=== PATIENT | female | born 1970 | race Caucasian/White ===

== ENCOUNTER 2016-08-10 16:04 | Emergency (ER) | payer OTHER, MEDICARE ==
[~2016-08-10] VITALS: Ht 154.9 cm; Wt 63.5 kg
[~2016-08-10 16:04] MED LIST: AMOXICILLI400 MG/5 M PO; DEXAMETHASONE0.5 MG PO; FERROUS SULFAT325 M1 PO; FLEXERIL 10MG T10 MG PO; FLEXERIL10 MG PO; HYDROCODONE/ACE1 TA1 PO; LIDODERM 5% PAT1 PAT EXT; MOTRIN 400MG (400 MG PO; NEXIUM 40MG40 MG PO; PREDNISONE 10MG10 M1 PO; ROXICODONE5 MG PO; SENNA CON/DOCUS1 TAB PO; VICODIN5-300 PO
[2016-08-10] MEDS ORDERED: TESSALON PERLE100 M1 PO (17:46)
[2016-08-10] MEDS ORDERED: MEDROL4 M2 PO (17:46)
--- NOTE | 2016-08-10 17:48 | ED THROAT/DENTAL COMPLAINT ---
History of Present Illness General Chief Complaint: Sore Throat, Dental Pain Stated Complaint: SORE THROAT Source: family Exam Limitations: no limitations Vital Signs & Intake/Output Vital Signs & Intake/Output Vital Signs Date Time Temp Pulse Resp B/P Pulse O2 O2 Flow FiO2 Ox Delivery Rate 08/10 1806 Room Air Room Air 08/10 180 97.0 107 15 130/80 100 Room Air Room Air 08/10 1633 97.3 89 18 160/74 99 Room Air Allergies Coded Allergies: NO KNOWN ALLERGIES (07/11/14) Reconcile Medications Amoxicillin 400 MG/5 ML PDR 1 TSP PO TID INFECTION Benzonatate (Tessalon Perle) 100 MG CAPSULE 1 CAP PO TID PRN COUGH Cyclobenzaprine (Flexeril 10MG Tab) 10 MG TAB 1 TAB PO TID PRN PAIN Dexamethasone 0.5 MG TAB 0 PO TAPER STEROID TAPER On Take 07/21-07/22 = 2 TAB EVERY 6 HOURS 07/23-07/24 = 1 TAB EVERY 6 HOURS 07/25-07/26 = 1 TAB EVERY 12 HOURS 07/27-07/28 = 1 TAB THEN STOP Docusate Sodium/Senna (Senna S) 50 MG/8.6 MG TAB 1 TAB PO BID PRN constipation Esomeprazole (Nexium) 40 MG CAPSULE.DR 1 CAP PO DAILY GI (Reported) Meclizine HCl 25 MG TABLET 1 TAB PO TIDPRN PRN DIZZINESS Methylprednisolone. (Medrol) 4 MG TAB.DS.PK 1 DP PO AD INFLAMMATION 6 on day 1 then reduce by one tablet daily until gone OXYCODONE HCL (Roxicodone) 5 MG TABLET 1 TAB PO Q6 PRN PAIN Triage Note: PT TO ED FOR SORE THROAT, COUGH AND POOR PO INTAKE "FOR A FEW WEEKS". PT DENIES VOMITING AND ABD PAIN, REPORTING POOR PO INTAKE DUE TO SORE THROAT. PT IS DEAF AND BLIND, FATHER WITH PATIENT WHO IS ABLE TO COMMUNICATE WITH PATIENT Triage Nurses Notes Reviewed? yes Onset: Gradual Duration: constant Injury Environment: home Severity: moderate Severity Numbers: 5 HPI: Patient is a 46-year-old female who is deaf and blind who presents with family member for concerns of a 10 day history of nonproductive cough sore throat and decreased by mouth intake The caregiver does state the patient due to symptoms has been eating lots of potato chips and not drinking enough fluids No similar sick contacts. Denies any fever chills back pain neck stiffness abdominal pain nausea or vomiting (GUS ALVAREZ) Past History Travel History Traveled to [place] past 21 day No Medical History Any Pertinent Medical History? 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 No (GUS ALVAREZ) Review of Systems Review of Systems Constitutional: Reports: no symptoms. EENTM: Reports: see HPI, throat pain. Respiratory: Reports: see HPI, cough. Cardiovascular: Reports: no symptoms. GI: Reports: no symptoms. Genitourinary: Reports: no symptoms. Musculoskeletal: Reports: no symptoms. Skin: Reports: no symptoms. Neurological/Psychological: Reports: no symptoms. Hematologic/Endocrine: Reports: no symptoms. Immunologic/Allergic: Reports: no symptoms. All Other Systems: Reviewed and Negative (GUS ALVAREZ) Physical Exam Physical Exam General Appearance: no apparent distress, alert, comfortable Head: atraumatic Ears: Bilateral: canal normal. Nose: normal inspection Mouth/Throat: normal mouth inspection, pharynx normal Neck: normal inspection, supple, full range of motion Cardiovascular/Respiratory: normal breath sounds, normal peripheral pulses, regular rate/rhythm, no respiratory distress Back: normal inspection, normal range of motion Neurologic/Psych: no motor/sensory deficits, awake Skin: intact, normal color, warm/dry Core Measures ACS in differential dx? No Severe Sepsis Present: No Septic Shock Present: No (GUS ALVAREZ) Progress Differential Diagnosis: carious tooth, epiglottitis, Ludwigs angina, meningitis, odontogenic abscess, thea-tonsillar abscess, pharyngeal for. body, stomatitis/ gingivitis, strep pharyngitis, tooth fracture Plan of Care: Orders Procedure Date/time Status THROAT CULTURE W/QUICK STREP 08/10 1615 Active Patient on examination showed no exudates no pharyngeal erythema Patient was able tolerate by mouth. On discharge the family and requested the patient felt dizzy and which is unattainable to discriminate due to patient's history whether or not this is dizziness compared to room spinning sensation however after meclizine was administered she felt significant improved patient and normal steady gait on discharge. Strep cultures currently pending patient does not require antibiotics at this time (GUS ALVAREZ) Departure Departure Disposition: HOME OR SELF CARE Condition: Stable Clinical Impression Primary Impression: Pharyngitis Secondary Impressions: Viral syndrome Referrals: UNKNOWN (PCP/Family) Additional Instructions: As discussed begin [id number] Tylenol or Motrin for pain and inflammation. Begin the prescription Tessalon Perles for cough, Medrol Dosepak for inflammation and Magic mouthwash for sore throat. Follow-up with primary care doctor on Wednesday if no better. If symptoms worsen return to emergency room. Prescriptions waiting at [facility] pharmacy. Begin drinking plenty of water for hydration and eating a well healthy balanced diet Departure Forms: Customer Survey General Discharge Information Prescriptions: Current Visit Scripts Methylprednisolone. (Medrol) 1 DP PO AD #1 DP 6 on day 1 then reduce by one tablet daily until gone Benzonatate (Tessalon Perle) 1 CAP PO TID PRN COUGH #21 CAP Meclizine HCl 1 TAB PO TIDPRN PRN DIZZINESS #21 TAB (GUS ALVAREZ) PA/DRY CURE WORKER Co-Sign Statement Statement: ED Attending supervision documentation- [] I saw and evaluated the patient. I have also reviewed all the pertinent lab results and diagnostic results. I agree with the findings and the plan of care as documented in the PA's/DRY CURE WORKER's documentation. [X] I have reviewed the ED Record and agree with the PA's/DRY CURE WORKER's documentation. [] Additions or exceptions (if any) to the PAs/DRY CURE WORKER's note and plan are summarized below: [] (MIKAELA CAMARENA,ROSA Ascencio)
[2016-08-10 18:04] VITALS: BP 130/80
[2016-08-10] MEDS ORDERED: MECLIZINE HCL25 MG PO (18:05)
[2016-08-10] MEDS ORDERED: CYCLOBENZAPRINE5 M2 PO (19:00)
[2016-08-10] MEDS ORDERED: NEXIUM40 M1 PO (19:00)
[2016-08-10] MEDS ORDERED: DEPO-PROVE150 MG/1 M IM (19:01)
== END 2016-08-10 19:09 ==
LOC: ERH 16:04
DX: J02.9 Acute pharyngitis, unspecified (principal); B34.9 Viral infection, unspecified

== ENCOUNTER 2016-08-30 20:27 | Emergency (ER) | payer OTHER, MEDICARE ==
[~2016-08-30] VITALS: Ht 152.4 cm; Wt 74.8 kg
[~2016-08-30 20:27] MED LIST changes: +CYCLOBENZAPRINE5 M2 PO; +DEPO-PROVE150 MG/1 M IM; +MECLIZINE HCL25 MG PO; +MEDROL4 M2 PO; +NEXIUM40 M1 PO; +TESSALON PERLE100 M1 PO
[2016-08-30 21:28] LABS: ABSOLUTE BASOPHIL COUNT 0 /CUMM (0.0-0.2); ABSOLUTE EOSINOPHIL COUNT 0.6 /CUMM (0.0-0.7); ABSOLUTE GRANULOCYTE CT 5.5 /CUMM (1.4-6.5); ABSOLUTE LYMPH COUNT 2.2 /CUMM (1.2-3.4); ABSOLUTE MONOCYTE COUNT 0.6 /CUMM (0.10-0.60); BASOPHIL % 0 % (0.0-2.0); EOSINOPHIL % 6.4 % (0-5); HEMATOCRIT 25.3 % (37-47); MEAN CORPUSCULAR HGB 16.7 PG (27.0-31.0); MEAN CORPUSCULAR HGB CONC 29.7 G/DL (33.0-37.0); MEAN CORPUSCULAR VOLUME 56.3 FL (81.0-99.0); MEAN PLATELET VOLUME 7.9 FL (7.4-10.4); PLATELET COUNT 435 /CUMM (130-400); RBC DISTRIBUTION WIDTH 23.4 % (11.5-14.5); RED BLOOD CELL CT 4.48 /CUMM (4.20-5.40); WHITE BLOOD CELL COUNT 8.8 /CUMM (4.8-10.8)
--- NOTE | 2016-08-30 21:38 | ED GENERAL ADULT ---
History of Present Illness General Chief Complaint: General Adult Stated Complaint: "BACK/ABD/FLANK PAIN X3DAYS" Source: patient, family, old records Exam Limitations: PATIENT LEGALLY DEAF AND BLIND Vital Signs & Intake/Output Vital Signs & Intake/Output Vital Signs Date Time Temp Pulse Resp B/P Pulse O2 O2 Flow FiO2 Ox Delivery Rate 08/30 2324 124 20 108/60 96 Room Air 08/30 2250 Room Air 08/30 2037 97.0 115 18 124/74 100 Room Air ED Intake and Output 08/31 0000 08/30 1200 Intake Total Output Total Balance Patient 165 lb Weight Allergies Coded Allergies: NO KNOWN ALLERGIES (07/11/14) Triage Note: PT TO ED FOR BACK PAIN, SHOULDER PAIN AND ARM PAIN WORSENING OVER PAST 4 DAYS, REPORTS WORKING ON COMPUTER EXACERBATES PAIN, PAIN IS REPRODUCIBLE AND SHOULDERS/BACK ARE TENDER TO PALPATION. REPORTING FLEXERIL HAS HELPED IN THE PAST. Triage Nurses Notes Reviewed? yes HPI: Patient is a 46-year-old female brought in by her family member for evaluation of bilateral upper back pain. Symptoms for between 4 days and one week. Pain is a burning sensation is currently severe, no improvement with cyclobenzaprine. Patient's family member reports the patient had an upper respiratory infection recently and was having cough and dyspnea. Denies chest pain. (RADHA REID,JANAE) Reconcile Medications Benzonatate (Tessalon Perle) 100 MG CAPSULE 1 CAP PO TID PRN COUGH Ciprofloxacin HCl (Cipro) 250 MG TABLET 1 TAB PO BID URINE INFECTION Cyclobenzaprine HCl 5 MG TABLET 1 TAB PO BID PRN MUSCLE SPASMS (Reported) Cyclobenzaprine HCl 10 MG TABLET 1 TAB PO 4 TIMES/DAY PRN MUSCLE SPASM Esomeprazole (Nexium) 40 MG CAPSULE.DR 1 CAP PO DAILY GI (Reported) Ibuprofen 600 MG TABLET 1 TAB PO TID PRN pain with food Meclizine HCl 25 MG TABLET 1 TAB PO TIDPRN PRN DIZZINESS Medroxyprogesterone Acetate (Depo-Provera) 150 MG/ML VIAL 150 MG IM Q3M CONTROL (Reported) Methylprednisolone. (Medrol) 4 MG TAB.DS.PK 1 DP PO AD INFLAMMATION 6 on day 1 then reduce by one tablet daily until gone (AMERICA CAMARENA,YOUNG Rose) Past History Travel History Traveled to [place] past 21 day No Medical History Any Pertinent Medical History? 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 No (JANAE BUNDY) Review of Systems Review of Systems Constitutional: Denies: chills, fever. EENTM: Reports: no symptoms, visual changes (legally blind). Respiratory: Reports: cough (resolved). Cardiovascular: Denies: chest pain. GI: Denies: abdominal pain, diarrhea, vomiting. Genitourinary: Reports: no symptoms. Musculoskeletal: Reports: back pain, neck pain. Skin: Reports: no symptoms. Neurological/Psychological: Reports: no symptoms. Hematologic/Endocrine: Reports: no symptoms. Immunologic/Allergic: Reports: no symptoms. (JANAE BUNDY) Physical Exam Physical Exam General Appearance: alert, awake Head: atraumatic, normal appearance Eyes: Bilateral: EOMI. Ears, Nose, Throat: patient legally deaf. Neck: supple, full range of motion, mild soft tissue swelling bilateral posterior cervical Respiratory: normal breath sounds, chest non-tender, no respiratory distress, lungs clear Cardiovascular: tachycardia (regular rhythm, no murmur) Gastrointestinal: soft, non-tender Back: normal inspection, normal range of motion, bilateral thoracic paraspinal tenderness Extremities: normal inspection, normal capillary refill, normal range of motion Neurologic/Psych: no motor/sensory deficits, awake, alert Skin: intact, normal color, warm/dry Lymphatic: no anterior cervical gale Core Measures ACS in differential dx? No CVA/TIA Diagnosis: No Severe Sepsis Present: No Septic Shock Present: No (JANAE BUNDY) Progress Differential Diagnoses I considered the following diagnoses in my evaluation of the patient: muscle strain, pneumonia, compression fracture, aortic dissection, malignancy, herniated disc Plan of Care: Orders Procedure Date/time Status TROPONIN LEVEL 08/30 2044 Complete LIPASE 08/30 2044 Complete HEPATIC FUNCTION PANEL 08/30 2044 Complete HUMAN BETA HCG SCREEN 08/30 2044 Complete CBC WITHOUT DIFFERENTIAL 08/30 2044 Complete BASIC METABOLIC PANEL 08/30 2044 Complete AMYLASE 08/30 2044 Complete EKG 08/30 2044 Active Laboratory Tests 08/30/162109: Anion Gap 13, Estimated GFR 48 L, BUN/Creatinine Ratio 15.0, Glucose 98, Calcium 10.1, Total Bilirubin 0.3, Direct Bilirubin 0.3, AST 36, ALT 52, Alkaline Phosphatase 120, Troponin I < 0.01, Total Protein 7.0, Albumin 3.6, Amylase < 30 L, Lipase 135, Total Beta HCG NEGATIVE, CBC w Diff NO MAN DIFF REQ , RBC 4.48, MCV 56.3 L, MCH 16.7 L, RDW 23.4 H, MPV 7.9, Gran % 62.0, Lymphocytes % 25.3, Monocytes % 6.3, Eosinophils % 6.4 H, Basophils % 0 L, Absolute Granulocytes 5.5, Absolute Lymphocytes 2.2, Absolute Monocytes 0.6, Absolute Eosinophils 0.6, Absolute Basophils 0, PUBS MCHC 29.7 L 2299: Results of labs and ekg discussed with patient. Anemia chronic, last hemoglobin was 8.3. Patient unable to lie flat for CT scan due to dizziness. IV ativan ordered. Signed out to Dr. Modi with CT scans pending. (JANAE BUNDY) Initial ED EKG: sinus tachycardia approximately 115 bpm, no acute ischemic ekg changes Hand-Off Endorsed To: YOUNG MODI MD Endorsed Time: 2306 Pending: CT (JANAE BUNDY) Diagnostic Imaging: Viewed by Me: CT Scan. Discussed w/RAD: CT Scan. Radiology Impression: ct neck, ct angio chest - no pe... liver lesion noted, stable... subcentimeter adenopathy Comments: PATIENT: BEBO MONIQUE PRESENT AGE: 46 PATIENT ACCOUNT NO: [id number] : 66 LOCATION: [facility] ORDERING PHYSICIAN: JANAE REID SERVICE DATE: 08/30/16 EXAM TYPE: CAT - CT NECK W IV CONTRAST; CTA CHEST-PULMONARY EMBOLISM EXAMINATION: CT NECK AND CTA CHEST PE STUDY WITH CONTRAST. CLINICAL INFORMATION: Lymphadenopathy and swelling. Tachycardia shortness of breath. COMPARISON: 07/27/2015. TECHNIQUE: Prior to contrast administration, localization images were obtained. After the administration of 120 mL of Optiray 350 IV contrast, contiguous axial images were obtained through the neck and thorax. Reformatted images in the coronal and sagittal planes were obtained at the acquisition workstation. MIP imaging. FINDINGS: The bolus timing on this study was acceptable for visualization of the pulmonary arterial tree. There are no intraluminal pulmonary arterial filling defects present to suggest pulmonary embolism. The lungs are notable for groundglass opacities diffusely particularly upper lung zones. No nodules or masses. No infiltrate. No interstitial lung disease. There is no evidence of pleural effusion or pneumothorax. The heart is normal in size. The mediastinum and great vessels are normal. There is no pericardial effusion or lymphadenopathy. Limited evaluation of the upper abdominal viscera demonstrates once again the right lobe liver lesion. MRI is again recommended. Gallstone partially imaged. Imaging of the neck demonstrates normal appearance of the nasopharyngeal and oropharyngeal regions. The major salivary glands appear normal. There are numerous small subcentimeter lymph nodes but no pathologic enlargement. No definite focal inflammatory changes or fluid collection. Supraclavicular regions normal. IMPRESSION: 1. No evidence for any acute or chronic pulmonary embolism. 2. Right lobe liver lesion again noted. Recommend MRI. 3. No pathologic lymphadenopathy. Nonspecific small subcentimeter lymphadenopathy throughout the neck. DICTATED BY: DREW RUSHING MD DATE/TIME DICTATED:08/31/16 [place]AN [place]:AMARILIS DATE/TIME TRANSCRIBED:08/31/16 CONFIDENTIAL, DO NOT COPY WITHOUT APPROPRIATE AUTHORIZATION. <Electronically signed in Other Vendor System> SIGNED BY: DREW RUSHING MD 08/31/16 0011 (AMERICA CAMARENA,YOUNG Rose) Departure Departure Condition: Stable Referrals: UNKNOWN (PCP/Family) Departure Forms: Customer Survey General Discharge Information (JANAE BUNDY) Departure Disposition: HOME OR SELF CARE Clinical Impression Primary Impression: Back pain Secondary Impressions: Neck pain Prescriptions: Current Visit Scripts Cyclobenzaprine HCl 1 TAB PO 4 TIMES/DAY PRN MUSCLE SPASM #30 TAB Ref 1 Ibuprofen 1 TAB PO TID PRN pain #30 TAB Ref 1 with food PA/SINGING MESSENGER Co-Sign Statement Statement: ED Attending supervision documentation- [x] I saw and evaluated the patient. I have also reviewed all the pertinent lab results and diagnostic results. I agree with the findings and the plan of care as documented in the PA's/SINGING MESSENGER's documentation. 08/31/16, 0:29... benign ct scans... on exam, muscle spasm, otherwise benign... pt safe for discharge. close follow up advised. [] I have reviewed the ED Record and agree with the PA's/SINGING MESSENGER's documentation. [] Additions or exceptions (if any) to the PAs/SINGING MESSENGER's note and plan are summarized below: [] (AMERICA CAMARENA,YOUNG Rose) Critical Care Note Critical Care Note Critical Care Time: non-applicable (RADHA REID,JANAE)
[2016-08-30 23:24] VITALS: BP 108/60
--- NOTE | 2016-08-31 00:11 | CT SCAN REPORT ---
EXAMINATION: CT NECK AND CTA CHEST PE STUDY WITH CONTRAST. CLINICAL INFORMATION: Lymphadenopathy and swelling. Tachycardia shortness of breath. COMPARISON: 07/27/2015. TECHNIQUE: Prior to contrast administration, localization images were obtained. After the administration of 120 mL of Optiray 350 IV contrast, contiguous axial images were obtained through the neck and thorax. Reformatted images in the coronal and sagittal planes were obtained at the acquisition workstation. MIP imaging. FINDINGS: The bolus timing on this study was acceptable for visualization of the pulmonary arterial tree. There are no intraluminal pulmonary arterial filling defects present to suggest pulmonary embolism. The lungs are notable for groundglass opacities diffusely particularly upper lung zones. No nodules or masses. No infiltrate. No interstitial lung disease. There is no evidence of pleural effusion or pneumothorax. The heart is normal in size. The mediastinum and great vessels are normal. There is no pericardial effusion or lymphadenopathy. Limited evaluation of the upper abdominal viscera demonstrates once again the right lobe liver lesion. MRI is again recommended. Gallstone partially imaged. Imaging of the neck demonstrates normal appearance of the nasopharyngeal and oropharyngeal regions. The major salivary glands appear normal. There are numerous small subcentimeter lymph nodes but no pathologic enlargement. No definite focal inflammatory changes or fluid collection. Supraclavicular regions normal. IMPRESSION: 1. No evidence for any acute or chronic pulmonary embolism. 2. Right lobe liver lesion again noted. Recommend MRI. 3. No pathologic lymphadenopathy. Nonspecific small subcentimeter lymphadenopathy throughout the neck.
[2016-08-31] MEDS ORDERED: CYCLOBENZAPRINE10 M1 PO (00:29)
[2016-08-31] MEDS ORDERED: IBUPROFEN600 M1 PO (00:29)
== END 2016-08-31 00:39 ==
LOC: ERH 20:27
PROVIDERS: Pediatrics
DX: M54.9 Dorsalgia, unspecified (principal); M54.2 Cervicalgia
CPT/HCPCS: 93005; 93010; 96374

== ENCOUNTER 2016-09-02 01:28 | Emergency (ER) | payer OTHER, MEDICARE ==
[~2016-09-02] VITALS: Ht 157.5 cm; Wt 63.5 kg
[~2016-09-02 01:28] MED LIST changes: +CYCLOBENZAPRINE10 M1 PO; +IBUPROFEN600 M1 PO
--- NOTE | 2016-09-02 02:00 | ED GENERAL ADULT ---
History of Present Illness General Chief Complaint: Female Urogenital Problems Stated Complaint: SEEN 2 DAYS AGO BACK PAIN ON MED "PEEING BLUE NOW" Source: family, old records Exam Limitations: LEAGALY DEAF AND BLIND Vital Signs & Intake/Output Vital Signs & Intake/Output Vital Signs Date Time Temp Pulse Resp B/P Pulse O2 O2 Flow FiO2 Ox Delivery Rate 09/02 0151 96.6 112 18 107/58 96 Room Air Allergies Coded Allergies: NO KNOWN ALLERGIES (07/11/14) Reconcile Medications Benzonatate (Tessalon Perle) 100 MG CAPSULE 1 CAP PO TID PRN COUGH Cyclobenzaprine HCl 5 MG TABLET 1 TAB PO BID PRN MUSCLE SPASMS (Reported) Cyclobenzaprine HCl 10 MG TABLET 1 TAB PO 4 TIMES/DAY PRN MUSCLE SPASM Esomeprazole (Nexium) 40 MG CAPSULE.DR 1 CAP PO DAILY GI (Reported) Ibuprofen 600 MG TABLET 1 TAB PO TID PRN pain with food Meclizine HCl 25 MG TABLET 1 TAB PO TIDPRN PRN DIZZINESS Medroxyprogesterone Acetate (Depo-Provera) 150 MG/ML VIAL 150 MG IM Q3M CONTROL (Reported) Methylprednisolone. (Medrol) 4 MG TAB.DS.PK 1 DP PO AD INFLAMMATION 6 on day 1 then reduce by one tablet daily until gone Triage Note: PT TO TRIAGE WITH FAMILY WHO REPORT PT WAS SEEN HERE TWO DAYS AGO AND D/C WITH RX FOR FLEXERIL AND IBUPROFEN WHICH SHE HAS BEEN TAKING. TONIGHT THEY NOTICED HER URINE WAS GREEN/BLUE IN COLOR. DENIES URINARY DYSURIA OR FREQUENCY. PT IS BLIND IN BOTH EYES AND DEAF IN BOTH EARS. Triage Nurses Notes Reviewed? yes HPI: Patient was seen here 2 days ago for back pain. Patient has CT angiogram which was negative. Patient was sent home on Flexeril and Motrin. Tonight the patient urinated and the urine was blue-green in color so her family brought her in for evaluation. Patient has no complaints. There've been no fevers. Past History Travel History Traveled to [place] past 21 day No Medical History Any Pertinent Medical History? 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 No Review of Systems Review of Systems Constitutional: Reports: no symptoms. Genitourinary: Reports: see HPI. Physical Exam Physical Exam General Appearance: well developed/nourished, alert, awake Head: atraumatic Ears, Nose, Throat: normal pharynx, normal ENT inspection Neck: normal inspection, supple, full range of motion Respiratory: normal breath sounds, chest non-tender, no respiratory distress, lungs clear Cardiovascular: regular rate/rhythm, normal peripheral pulses Gastrointestinal: normal bowel sounds, soft, non-tender, no organomegaly Back: normal inspection, normal range of motion Extremities: normal inspection, normal capillary refill, no edema Neurologic/Psych: no motor/sensory deficits, awake, alert, normal mood/affect Lymphatic: no anterior cervical gale Core Measures ACS in differential dx? No CVA/TIA Diagnosis: No Severe Sepsis Present: No Septic Shock Present: No Progress Differential Diagnoses I considered the following diagnoses in my evaluation of the patient: [UTI, left -sided abnormality, acute renal failure, medication reaction] Plan of Care: Orders Procedure Date/time Status Add-on Test (ER Only) 09/02 0400 Active COMPREHENSIVE METABOLIC PANEL 09/02 0200 Complete CBC WITHOUT DIFFERENTIAL 09/02 199 Complete URINALYSIS 09/02 0148 Complete Current Medications Sig/Anthony Start time Last Medication Dose Stop Time Status Admin Ciprofloxacin 500 MG ONCE ONE 09/025 UNVr (Cipro) 09/02 0416 Laboratory Tests 09/02/16 0333: Urine Color STRAW, Urine Clarity HAZY H, Urine pH 5.5, Ur Specific [place] 1.020, Urine Protein 100 H, Urine Ketones NEG, Urine Nitrite POS H, Urine Bilirubin NEG, Urine Urobilinogen 0.2, Ur Leukocyte Esterase LARGE H, Ur Microscopic SEDIMENT EXAMINED, Urine RBC 15-25 H, Urine WBC 25-50 H, Ur Epithelial Cells MOD H, Urine Bacteria MANY H, Urine Hemoglobin LARGE H, Urine Glucose NEG 09/02/16 0210: Anion Gap 15, Estimated GFR 48 L, BUN/Creatinine Ratio 17.5, Glucose 90, Calcium 9.9, Total Bilirubin 0.4, AST 27, ALT 44, Alkaline Phosphatase 134 H, Total Protein 7.4, Albumin 3.8, Globulin 3.6, Albumin/Globulin Ratio 1.1, CBC w Diff MAN DIFF ORDERED, RBC 4.31, MCV 56.7 L, MCH 17.0 L, RDW 23.6 H, MPV 7.9, Gran % 78.0 H, Lymphocytes % 12.6 L, Monocytes % 5.5, Eosinophils % 3.9, Basophils % 0 L, Absolute Granulocytes 7.0 H, Segmented Neutrophils 81 H, Absolute Lymphocytes 1.1 L, Lymphocytes 12 L, Monocytes 4, Absolute Monocytes 0.5, Eosinophils 2, Absolute Eosinophils 0.3, Basophils 1, Absolute Basophils 0, Platelet Estimate INCREASED, Polychromasia 1+, Hypochromic-Microcytic 1+, Poikilocytosis 2+, Anisocytosis 3+, Microcytic Cells 3+, Ovalocytes 1+, Stomatocytes 1+, PUBS MCHC 29.9 L, Fld Total RBCs Counted 100 Initial ED EKG: none Comments: Patient noted to have blue-green marker hutchins on her hand. Departure Departure Disposition: HOME OR SELF CARE Condition: Stable Clinical Impression Primary Impression: Urine discoloration Secondary Impressions: UTI (urinary tract infection) Referrals: UNKNOWN (PCP/Family) Additional Instructions: Return for any concerns. Departure Forms: Customer Survey General Discharge Information Prescriptions: Current Visit Scripts Ciprofloxacin HCl (Cipro) 1 TAB PO BID #10 TAB Critical Care Note Critical Care Note Critical Care Time: non-applicable
[2016-09-02 02:22] LABS: ABSOLUTE BASOPHIL COUNT 0 /CUMM (0.0-0.2); ABSOLUTE EOSINOPHIL COUNT 0.3 /CUMM (0.0-0.7); ABSOLUTE LYMPH COUNT 1.1 /CUMM (1.2-3.4); ABSOLUTE MONOCYTE COUNT 0.5 /CUMM (0.10-0.60); BASOPHIL % 0 % (0.0-2.0); EOSINOPHIL % 3.9 % (0-5); HEMATOCRIT 24.5 % (37-47); MEAN CORPUSCULAR HGB CONC 29.9 G/DL (33.0-37.0); MEAN CORPUSCULAR VOLUME 56.7 FL (81.0-99.0); MEAN PLATELET VOLUME 7.9 FL (7.4-10.4); PLATELET COUNT 451 /CUMM (130-400); RBC DISTRIBUTION WIDTH 23.6 % (11.5-14.5); RED BLOOD CELL CT 4.31 /CUMM (4.20-5.40); WHITE BLOOD CELL COUNT 8.9 /CUMM (4.8-10.8)
[2016-09-02] MEDS ORDERED: CIPRO250 M1 PO (04:02)
[2016-09-02 04:03] VITALS: BP 109/72
== END 2016-09-02 04:11 ==
LOC: ERH 01:28
PROVIDERS: Emergency Medicine
DX: N39.0 Urinary tract infection, site not specified (principal); R39.9 Unspecified symptoms and signs involving the genitourinary system
CPT/HCPCS: 81001

== ENCOUNTER 2016-09-13 02:40 | Emergency (ER) | payer OTHER, MEDICARE ==
[~2016-09-13] VITALS: Ht 154.9 cm; Wt 72.6 kg
[~2016-09-13 02:40] MED LIST changes: +CIPRO250 M1 PO
--- NOTE | 2016-09-13 03:19 | ED THROAT/DENTAL COMPLAINT ---
History of Present Illness General Chief Complaint: Sore Throat, Dental Pain Stated Complaint: SORE THROAT Source: patient, family, old records Exam Limitations: no limitations Vital Signs & Intake/Output Vital Signs & Intake/Output Vital Signs Date Time Temp Pulse Resp B/P B/P Pulse O2 O2 Flow FiO2 Mean Ox Delivery Rate 09/13 0253 98.6 120 18 119/76 99 Room Air Allergies Coded Allergies: NO KNOWN ALLERGIES (07/11/14) Reconcile Medications Benzonatate (Tessalon Perle) 100 MG CAPSULE 1 CAP PO TID PRN COUGH Ciprofloxacin HCl (Cipro) 250 MG TABLET 1 TAB PO BID URINE INFECTION Cyclobenzaprine HCl 5 MG TABLET 1 TAB PO BID PRN MUSCLE SPASMS (Reported) Cyclobenzaprine HCl 10 MG TABLET 1 TAB PO 4 TIMES/DAY PRN MUSCLE SPASM Esomeprazole (Nexium) 40 MG CAPSULE.DR 1 CAP PO DAILY GI (Reported) Ibuprofen 600 MG TABLET 1 TAB PO TID PRN pain with food Meclizine HCl 25 MG TABLET 1 TAB PO TIDPRN PRN DIZZINESS Medroxyprogesterone Acetate (Depo-Provera) 150 MG/ML VIAL 150 MG IM Q3M CONTROL (Reported) Methylprednisolone. (Medrol) 4 MG TAB.DS.PK 1 DP PO AD INFLAMMATION 6 on day 1 then reduce by one tablet daily until gone Triage Note: 46yo FEMALE TO TRIAGE W/HER FATHER WHO REPORTS PT CO BURNING IN THROAT AND CHEST SINCE 1800 TONITE. PT IS DEAF AND BLIND. Triage Nurses Notes Reviewed? yes HPI: Patient presents with a burning sensation to her throat that is exacerbated with swallowing. Patient denies any difficulty breathing. There is no abdominal pain. There are no fevers or chills. She rates as moderate on the scale. Past History Travel History Traveled to [place] past 21 day No Medical History Any Pertinent Medical History? 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 No Review of Systems Review of Systems Constitutional: Reports: no symptoms. EENTM: Reports: see HPI, throat pain. Respiratory: Reports: no symptoms. Cardiovascular: Reports: no symptoms. GI: Reports: no symptoms. Neurological/Psychological: Reports: no symptoms. Physical Exam Physical Exam General Appearance: well developed/nourished, alert, awake Head: atraumatic Mouth/Throat: PHARYNGEAL ERYTHEMA Neck: lymphadenopathy (R), lymphadenopathy (L) Cardiovascular/Respiratory: normal breath sounds, normal peripheral pulses, regular rate/rhythm, no respiratory distress Core Measures ACS in differential dx? No Severe Sepsis Present: No Septic Shock Present: No Progress Differential Diagnosis: strep pharyngitis Plan of Care: Orders Procedure Date/time Status THROAT CULTURE W/QUICK STREP 09/13 318 Active Current Medications Sig/Anthony Start time Last Medication Dose Stop Time Status Admin Amoxicillin 500 MG ONCE ONE 09/13 444 UNVr (Amoxil) 09/13 445 Departure Departure Disposition: HOME OR SELF CARE Condition: Stable Clinical Impression Primary Impression: Pharyngitis Referrals: UNKNOWN (PCP/Family) Additional Instructions: RETURN IF SYMPTOMS WORSEN OR FOR ANY CONCERNS Departure Forms: Customer Survey General Discharge Information Prescriptions: Current Visit Scripts Amoxicillin 1 TAB PO TID #30 TAB
[2016-09-13] MEDS ORDERED: AMOXICILLIN500 M3 PO (04:32)
[2016-09-13 04:40] VITALS: BP 123/80
== END 2016-09-13 04:44 ==
LOC: ERH 02:40
DX: J02.9 Acute pharyngitis, unspecified (principal); R07.89 Other chest pain

== ENCOUNTER 2016-10-09 17:29 | Emergency (ER) | payer OTHER, MEDICARE ==
[~2016-10-09] VITALS: Ht 154.9 cm; Wt 72.6 kg
[~2016-10-09 17:29] MED LIST changes: +AMOXICILLIN500 M3 PO
[2016-10-09 18:04] VITALS: BP 149/85
--- NOTE | 2016-10-09 18:11 | ED GENERAL ADULT ---
History of Present Illness General Chief Complaint: General Adult Stated Complaint: NEEDS SEDATION FOR MRI Source: family, old records Exam Limitations: no limitations Vital Signs & Intake/Output Vital Signs & Intake/Output Vital Signs Date Time Temp Pulse Resp B/P B/P Pulse O2 O2 Flow FiO2 Mean Ox Delivery Rate 10/09 1804 96.9 111 16 149/85 97 Room Air Allergies Coded Allergies: NO KNOWN ALLERGIES (07/11/14) Reconcile Medications Amoxicillin 500 MG TABLET 1 TAB PO TID PHARYNGITIS Benzonatate (Tessalon Perle) 100 MG CAPSULE 1 CAP PO TID PRN COUGH Ciprofloxacin HCl (Cipro) 250 MG TABLET 1 TAB PO BID URINE INFECTION Cyclobenzaprine HCl 5 MG TABLET 1 TAB PO BID PRN MUSCLE SPASMS (Reported) Cyclobenzaprine HCl 10 MG TABLET 1 TAB PO 4 TIMES/DAY PRN MUSCLE SPASM Esomeprazole (Nexium) 40 MG CAPSULE.DR 1 CAP PO DAILY GI (Reported) Ibuprofen 600 MG TABLET 1 TAB PO TID PRN pain with food Meclizine HCl 25 MG TABLET 1 TAB PO TIDPRN PRN DIZZINESS Medroxyprogesterone Acetate (Depo-Provera) 150 MG/ML VIAL 150 MG IM Q3M CONTROL (Reported) Methylprednisolone. (Medrol) 4 MG TAB.DS.PK 1 DP PO AD INFLAMMATION 6 on day 1 then reduce by one tablet daily until gone Triage Note: PT HERE FOR SEDATION SO SHE CAN GET HER SCHEDULED MRI. Triage Nurses Notes Reviewed? yes Onset: Abrupt Duration: day(s): (1), constant Timing: recent history Injury Environment: home Severity: mild Severity Numbers: 1 Associated Symptoms: denies HPI: 46 year old female with neurofibromatosis, requested neuroma/brain tumor status post multiple surgeries/ventriculo Peroneal shunt and GERD, legally blind, deaf and mute presents with family for evaluation sent over by MRI the patient is scheduled to have an outpatient MRI done for today however primary care physician failed to write her for medication to help sedate her prior to the imaging. There is no complaints on arrival patient's family states she is otherwise been in her normal state of health no fever no chills no other complaints. Past History Travel History Traveled to [place] past 21 day No Medical History Any Pertinent Medical History? 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 No Review of Systems Review of Systems Constitutional: Reports: see HPI. All Other Systems: Reviewed and Negative Comments Review of systems: obtained via family All other systems negative. Constitutional, no chills no fever, no malaise HEENT: No visual changes no sore throat no congestion, Cardiovascular: No chest pain , no palpitation Skin: no rashes, no change in skin Respiratory: No dyspnea no cough no sputum GI: No nausea no vomiting, no diarrhea Muscle skeletal: No joint pain, no joint swelling, no back pain Neurologic: No numbness no confusion, no headache Psych: no depression,. Heme/endocrine: No bruising no bleeding Immunology: No lymphadenopathy Physical Exam Physical Exam General Appearance: well developed/nourished, no apparent distress, alert Comments: Well-developed well-nourished patient in no apparent distress. HEENT: Atraumatic, extraocular motion intact Neck: Supple, FROM Back: FROM Cardiovascular: Regular rate and rhythms no murmurs rubs Respiratory: No respiratory distress. Patient speaking in full complete sentences. Breath sounds clear to auscultation bilaterally: NO W/R/R Extremities: full range of motion Neuro: awake no focal neurologic deficit Skin: Warm & dry;No appreciable rash on exposed skin Psych: Mood affect normal, normal memory normal judgment. Core Measures ACS in differential dx? No CVA/TIA Diagnosis: No Severe Sepsis Present: No Septic Shock Present: No Progress Differential Diagnoses I considered the following diagnoses in my evaluation of the patient: Anxiety secondary to procedure Plan of Care: Current Medications Sig/Anthony Start time Last Medication Dose Stop Time Status Admin Lorazepam 1 MG ONCE ONE 10/09 1814 AC 10/09 (Ativan) 10/09 Patient medicated with Ativan 1 mg IM patient will be discharged from the ER and sent to outpatient MRI to have procedure performed ([facility]) Initial ED EKG: none Departure Departure Time of Disposition: 1814 Disposition: HOME OR SELF CARE Condition: Stable Clinical Impression Primary Impression: Anxiety Referrals: UNKNOWN (PCP/Family) Additional Instructions: FOLLOW UP WITH YOUR PMD ON WEDNESDAY. RETURN TO THE ER WITH ANY CONCERNS Departure Forms: Customer Survey General Discharge Information Critical Care Note Critical Care Note Critical Care Time: non-applicable
== END 2016-10-09 18:40 ==
LOC: ERH 17:29
DX: F41.9 Anxiety disorder, unspecified (principal)
CPT/HCPCS: 96372

== ENCOUNTER 2016-10-15 21:46 | Emergency (ER) | payer OTHER, MEDICARE ==
[~2016-10-15] VITALS: Ht 162.6 cm; Wt 74.8 kg
--- NOTE | 2016-10-15 22:54 | ED ANKLE/FOOT INJURY COMPLAINT ---
History of Present Illness General Chief Complaint: Lower Extremity Problems Stated Complaint: LOWER EXTREMITY COMPLAINTS Source: patient, family, old records Exam Limitations: clinical condition, physical impairment Vital Signs & Intake/Output Vital Signs & Intake/Output Vital Signs Date Time Temp Pulse Resp B/P B/P Pulse O2 O2 Flow FiO2 Mean Ox Delivery Rate 10/15 2319 97.1 100 18 128/76 95 Room Air 10/15 2155 97.1 110 18 125/78 96 Room Air Allergies Coded Allergies: NO KNOWN ALLERGIES (07/11/14) Reconcile Medications Amoxicillin 500 MG TABLET 1 TAB PO TID PHARYNGITIS Benzonatate (Tessalon Perle) 100 MG CAPSULE 1 CAP PO TID PRN COUGH Ciprofloxacin HCl (Cipro) 250 MG TABLET 1 TAB PO BID URINE INFECTION Cyclobenzaprine HCl 5 MG TABLET 1 TAB PO BID PRN MUSCLE SPASMS (Reported) Cyclobenzaprine HCl 10 MG TABLET 1 TAB PO 4 TIMES/DAY PRN MUSCLE SPASM Esomeprazole (Nexium) 40 MG CAPSULE.DR 1 CAP PO DAILY GI (Reported) Ibuprofen 600 MG TABLET 1 TAB PO TID PRN pain with food Meclizine HCl 25 MG TABLET 1 TAB PO TIDPRN PRN DIZZINESS Medroxyprogesterone Acetate (Depo-Provera) 150 MG/ML VIAL 150 MG IM Q3M CONTROL (Reported) Methylprednisolone. (Medrol) 4 MG TAB.DS.PK 1 DP PO AD INFLAMMATION 6 on day 1 then reduce by one tablet daily until gone Tramadol HCl (Ultram) 50 MG TABLET 1-2 TAB PO Q6PRN PRN severe pain Triage Note: PT IS NON VERBAL, COMMUNICATES VIA TYPING/WRITING. TO ED WITH BROTHER, C/O DONG FEET PAIN, BURNING IN NATURE. ACHING IN LOWER LEGS. PER BROTHER, "IT'S NEW FOR HER" ALSO C/O PAIN IN UPPER LIP, LUMP HAS BEEN THERE "FOR A FEW YEARS" Triage Nurses Notes Reviewed? yes Occurred: yesterday Duration: day(s):, constant, continues in ED Timing: recent history Severity: mild Pain/Injury Location: Bilateral: 1st toe. Method of Injury: unknown Modifying Factors: Worsens With: other (weight bearing). Associated Symptoms: swelling, stiffness LMP (ages 10-50): post menopausal : No Patient currently breastfeeds: No HPI: 1 day prior to admission patient reports right greater than left great toe pain with swelling described as sharp constant worse with weightbearing. She also complains of discomfort about a chronic cyst on her upper lip. There has been no fever chills nausea vomiting diarrhea abdominal pain chest pain shortness breath headache dysuria rash bleeding. Past History Travel History Traveled to [place] past 21 day No Medical History Any Pertinent Medical History? 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 No Review of Systems Review of Systems Constitutional: Reports: no symptoms. EENTM: Reports: no symptoms. Respiratory: Reports: no symptoms. Cardiovascular: Reports: no symptoms. GI: Reports: no symptoms. Genitourinary: Reports: no symptoms. Musculoskeletal: Reports: see HPI. Skin: Reports: see HPI, cysts. Neurological/Psychological: Reports: no symptoms. Hematologic/Endocrine: Reports: no symptoms. Immunologic/Allergic: Reports: no symptoms. All Other Systems: Reviewed and Negative Physical Exam Physical Exam General Appearance: well developed/nourished, alert, awake, anxious, mild distress Head: atraumatic, normal appearance Eyes: Bilateral: PERRL, EOMI. Ears, Nose, Throat: normal pharynx, normal ENT inspection, hearing grossly normal Neck: normal inspection, supple Cardiovascular/Respiratory: regular rate/rhythm Back: normal inspection, normal range of motion Leg/Knee/Thigh Left: normal range of motion, normal inspection Leg/Knee/Thigh Right: normal range of motion, normal inspection Ankle Left: normal inspection, normal range of motion Ankle Right: normal inspection, normal range of motion Foot Left: normal inspection, normal range of motion Foot Right: normal inspection, normal range of motion Reflexes: 2+: knee (R), knee (L). Neuro/Vascular: normal motor function, normal sensation Tendon: normal tendon function Psychiatric: awake, alert, oriented x 3 Skin: intact, normal color, warm/dry Progress Differential Diagnosis: fracture, sprain, contusion Plan of Care: Current Medications Sig/Anthony Start time Last Medication Dose Stop Time Status Admin Tramadol HCl 50 MG ONCE ONE 10/15 2299 AC (Ultram) 10/15 2300 Departure Departure Time of Disposition: 2311 Disposition: HOME OR SELF CARE Condition: Stable Clinical Impression Primary Impression: Toe pain, bilateral Referrals: NNEKA CAMARENA,TRI Rivera (PCP/Family) Departure Forms: Customer Survey General Discharge Information Prescriptions: Current Visit Scripts Tramadol HCl (Ultram) 1-2 TAB PO Q6PRN PRN severe pain #30 TAB
[2016-10-15] MEDS ORDERED: ULTRAM50 M1 PO (23:12)
[2016-10-15 23:19] VITALS: BP 128/76
== END 2016-10-15 23:21 ==
LOC: ERH 21:46
DX: M79.674 Pain in right toe(s) (principal); M79.675 Pain in left toe(s)

== ENCOUNTER 2016-10-26 19:44 | Emergency (ER) | payer OTHER, MEDICARE ==
[~2016-10-26 19:44] MED LIST changes: +ULTRAM50 M1 PO
--- NOTE | 2016-10-26 22:30 | ED THROAT/DENTAL COMPLAINT ---
History of Present Illness General Chief Complaint: Sore Throat, Dental Pain Stated Complaint: SORE THROAT Source: patient, family Exam Limitations: no limitations Vital Signs & Intake/Output Vital Signs & Intake/Output Vital Signs Date Time Temp Pulse Resp B/P B/P Pulse O2 O2 Flow FiO2 Mean Ox Delivery Rate 10/268 97.7 102 18 118/60 100 Room Air 10/26 2022 97.9 92 22 120/69 95 Room Air Allergies Coded Allergies: NO KNOWN ALLERGIES (07/11/14) Reconcile Medications Esomeprazole (Nexium) 40 MG CAPSULE.DR 1 CAP PO DAILY GI (Reported) Medroxyprogesterone Acetate (Depo-Provera) 150 MG/ML VIAL 150 MG IM Q3M VAGINAL BLEEDING (Reported) Nystatin 100,000 UNIT/ML ORAL.SUSP 5 ML PO 4 TIMES/DAY ORAL THRUSH Tramadol HCl (Ultram) 50 MG TABLET 1-2 TAB PO Q6PRN PRN severe pain Triage Note: POER FATHER SORE THROAT X 2 DAYS NO FEVER PT IS DEAF AND BLIND ALSO HAS MULTIPLE CO. OF GREAT TOE PAIN AND BURNING IN EARS. USING TRAMADOL WITHOUT EFFECT. Triage Nurses Notes Reviewed? yes HPI: Patient is deaf and mute and legally blind. Patient lives at home with her family. Patient has been complaining of a sore throat for the past few weeks as well as right great toe pain. Patient cannot describe the pain to either her throat or her great toe. Patient has been eating and drinking normally. Patient has been seen multiple times for her throat pain. Past History Travel History Traveled to [place] past 21 day No Medical History Any Pertinent Medical History? 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 No Review of Systems Review of Systems Constitutional: Reports: see HPI. EENTM: Reports: see HPI, throat pain. Respiratory: Reports: no symptoms. Cardiovascular: Reports: no symptoms. GI: Reports: no symptoms. Musculoskeletal: Reports: see HPI, joint pain. Immunologic/Allergic: Reports: no symptoms. Physical Exam Physical Exam General Appearance: well developed/nourished, awake Eyes: Bilateral: other (CLOUDED OVER). Mouth/Throat: ORAL THRUSH Neck: lymphadenopathy (R) Cardiovascular/Respiratory: normal breath sounds, normal peripheral pulses, regular rate/rhythm, no respiratory distress Comments: RIGHT GREAT TOE, ECCHYMOSIS, FULL ROM Core Measures ACS in differential dx? No Severe Sepsis Present: No Septic Shock Present: No Progress Differential Diagnosis: strep pharyngitis, CANDASIASIS, FX Plan of Care: Orders Procedure Date/time Status THROAT CULTURE W/QUICK STREP 10/26 2021 Active Diagnostic Imaging: Viewed by Me: Radiology Read. Discussed w/RAD: Radiology Read. Radiology Impression: PATIENT: BEBO MONIQUE PRESENT AGE: 46 PATIENT ACCOUNT NO: [id number] : 66 LOCATION: [facility] ORDERING PHYSICIAN: ROSA AL MD SERVICE DATE: 10/26/16 EXAM TYPE: RAD - XRY-TOES, RIGHT EXAMINATION: XR TOES, RIGHT CLINICAL INFORMATION: Right first toe pain and ecchymosis. Fracture. COMPARISON: None TECHNIQUE: 3 views of the right toes were obtained. FINDINGS: There are no fractures or dislocations. No joint effusion is identified. No bone, joint or soft tissue abnormality is demonstrated. IMPRESSION: No fracture seen. DICTATED BY: GIULIA BORJA MD DATE/TIME DICTATED:10/26/162344 SHROUD LINE TIER:AMARILIS DATE/TIME TRANSCRIBED:10/26/162344 CONFIDENTIAL, DO NOT COPY WITHOUT APPROPRIATE AUTHORIZATION. <Electronically signed in Other Vendor System> SIGNED BY: GIULIA BORJA MD 10/26/162348 Departure Departure Disposition: HOME OR SELF CARE Condition: Stable Clinical Impression Primary Impression: Oral thrush Secondary Impressions: Toe contusion Qualifiers: Encounter type: initial encounter Toe: great toe Damage to nail status: without damage Laterality: right Qualified Code: S90.111A - Contusion of right great toe without damage to nail, initial encounter Referrals: TRI EARLY MD (PCP/Family) Departure Forms: Customer Survey General Discharge Information Prescriptions: Current Visit Scripts Nystatin 5 ML PO 4 TIMES/DAY #200 ML
[2016-10-26] MEDS ORDERED: DEPO-PROVE150 MG/1 M IM (23:01)
[2016-10-26 23:18] VITALS: BP 118/60
--- NOTE | 2016-10-26 23:49 | RADIOLOGY REPORT ---
EXAMINATION: XR TOES, RIGHT CLINICAL INFORMATION: Right first toe pain and ecchymosis. Fracture. COMPARISON: None TECHNIQUE: 3 views of the right toes were obtained. FINDINGS: There are no fractures or dislocations. No joint effusion is identified. No bone, joint or soft tissue abnormality is demonstrated. IMPRESSION: No fracture seen.
[2016-10-26] MEDS ORDERED: NYSTATIN100000 UNI PO (23:55)
== END 2016-10-27 00:07 ==
LOC: ERH 19:44
DX: S90.111A Contusion of right great toe without damage to nail, initial encounter (principal); B37.0 Candidal stomatitis; X58.XXXA Exposure to other specified factors, initial encounter; Y93.9 Activity, unspecified; Y92.9 Unspecified place or not applicable
CPT/HCPCS: 73660-RT